=== PATIENT | male | born 1965 | race Caucasian/White ===

== ENCOUNTER 2018-12-25 06:46 | Day surgery (SDC) | payer BC ==
[~2018-12-25 06:46] MED LIST: Lactated Ringers 1,000 ML IV SCH
--- NOTE | 2018-12-25 07:18 | PCM.PREANE ---
Preanesthetic Assessment - Anesthesia/Transfusion/Family Hx Anesthesia History: Prior Anesthesia Without Reaction Other Type of Anesthesia Reaction Comment: NO problem when snoozed for [place] teeth Family History of Anesthesia Reaction: No Transfusion History: No Prior Transfusion(s) Intubation History: Unknown - Review of Systems General: No Symptoms Pulmonary: No Symptoms Cardiovascular: No Symptoms Gastrointestinal: No Symptoms Neurological: No Symptoms Other: Reports: None - Physical Assessment O2 Sat by Pulse Oximetry: 98 Respiratory Rate: 16 Vital Signs: Last Vital Signs Temp 97.3 F 12/25/18 07:04 Pulse 62 12/25/18 07:04 Resp 16 12/25/18 07:04 BP 135/69 12/25/18 07:04 Pulse Ox 98 12/25/18 07:04 Height: 6 ft Weight: 102.058 kg ASA Class: 2 Mental Status: Alert & Oriented x3 Airway Class: Mallampati = 2 Dentition: Reports: Normal Dentition, [place]s) (lower right and left (back)), [place] (left upper (back)) Thyro-Mental Finger Breadths: 3 Mouth Opening Finger Breadths: 3 ROM/Head Extension: Full Lungs: Clear to Auscultation, Normal Respiratory Effort Cardiovascular: Regular Rate, Regular Rhythm - Allergies Allergies/Adverse Reactions: Allergies Allergy/AdvReac Type Severity Reaction Status Date / Time No Known Allergies Allergy Verified 12/19/18 14:39 - Blood Blood Available: No - Anesthesia Plan Pre-Op Medication Ordered: None - Acknowledgements Anesthesia Type Planned: General Anesthesia Pt an Appropriate Candidate for the Planned Anesthesia: Yes Alternatives and Risks of Anesthesia Discussed w Pt/Guardian: Yes Pt/Guardian Understands and Agrees with Anesthesia Plan: Yes PreAnesthesia Questionnaire HEENT History: Reports: Other (See Below) Other HEENT History: wears glasses Cardiovascular History: Reports: Hypertension - Past Surgical History Other HEENT Surgeries/Procedures: [place] teeth extracted GI Surgical History: Reports: Colonoscopy - SUBSTANCE USE Smoking Status *Q: Never Smoker (quit chewing more than 10 years ago) Recreational Drug Use History: No - HOME MEDS Home Medications: Home Meds Ascorbic Acid [Vitamin C] 1,000 mg PO DAILY 07/09/15 [History] Aspirin [Adult Low Dose Aspirin EC] 81 mg PO DAILY 07/09/15 [History] Fish Oil/[place]-3 Fatty Acids [Fish Oil 1,000 MG] 3,000 mg PO DAILY 12/19/18 [ History] Lisinopril 30 mg PO DAILY 12/19/18 [History] - CURRENT (IN HOUSE) MEDS Current Meds: Current Medications Lactated Ringer's (Ringers, Lactated) 1,000 mls @ 125 mls/hr IV [facility]ED [facility] Last Admin: 12/25/18 07:03 Dose: 125 mls/hr
[2018-12-25] MEDS ORDERED: Midazolam 1 MG/ML 2 ML SDV ONE (07:23)
[2018-12-25] MEDS ORDERED: fentaNYL 100 MCG/2 ML SDV ONE (07:24)
[2018-12-25] MEDS ORDERED: Lidocaine 2% 5 ML SDV ONE (07:25)
[2018-12-25] MEDS ORDERED: Propofol 200 MG/20 ML SDV ONE (07:27)
[2018-12-25] MEDS ORDERED: Lidocaine 1% 20 ML MDV ONE (07:29)
[2018-12-25] MEDS ORDERED: Bupivacaine 0.5% 30 ML SDV ONE (07:29)
[2018-12-25] MEDS ORDERED: Rocuronium 10 MG/ML 10 ML Syringe ONE (07:59)
[2018-12-25] MEDS ORDERED: Neostigmine Methylsulfate 1 MG/ML 5 ML Syringe ONE (08:50)
[2018-12-25] MEDS ORDERED: Glycopyrrolate 0.2 MG/ML SDV ONE (08:50)
[2018-12-25] MEDS ORDERED: Ondansetron 4 MG/2 ML SDV ONE ×2 (08:53)
[2018-12-25] MEDS ORDERED: Ketorolac 30 MG/ML SDV ONE (08:56)
[2018-12-25] MEDS ORDERED: ePHEDrine 50 MG/ML SDV ONE (08:59)
[2018-12-25] MEDS ORDERED: Acetaminophen/HYDROcodone 325-5 MG Tab PO PRN (09:10)
[2018-12-25] MEDS ORDERED: Sugammadex Sodium 200 MG/2 ML VIAL ONE (09:11)
[2018-12-25] MEDS ORDERED: Lactated Ringers 1,000 ML IV SCH (09:15)
[2018-12-25] MEDS ORDERED: fentaNYL 100 MCG/2 ML SDV IVPUSH PRN (09:22)
--- NOTE | 2018-12-25 09:24 | PCM.OPNOTE ---
- General Post-Op/Procedure Note Date of Surgery/Procedure: 12/25/18 Operative Procedure(s): Excision 5 cm posterior neck mass Pre Op Diagnosis: Posterior neck mass Post-Op Diagnosis: Same Anesthesia Technique: General ET Tube (ASA II) Primary Surgeon: Dakota Barakat Prenatal Nurse: Whitney Danielle Fluid Replacement, Intraop: 1,000 EBL in mLs: 5 Condition: Good Free Text/Narrative:: DICTATION 636662 CPT CODE 48593
--- NOTE | 2018-12-25 10:31 | PCM48HPAN ---
Post Anesthesia Note - EVALUATION WITHIN 48HRS OF ANESTHETIC Vital Signs in Normal Range: Yes Patient Participated in Evaluation: Yes Respiratory Function Stable: Yes Airway Patent: Yes Cardiovascular Function Stable: Yes Hydration Status Stable: Yes Pain Control Satisfactory: Yes Nausea and Vomiting Control Satisfactory: Yes Mental Status Recovered: Yes Resp Rate: 13 - COMMENTS/OBSERVATIONS Free Text/Narrative:: no anesthesia problems
[2018-12-25 10:58] VITALS: BP 130/70
--- NOTE | 2018-12-25 15:01 | OR ---
SURGEON: Dakota Barakat M.D. DATE OF PROCEDURE: 12/25/2018 OPERATION PERFORMED: Excision of 5 cm posterior neck mass with layered 10 cm closure. PRIMARY SURGEON: Dakota Barakat M.D. 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 ANESTHESIA: General endotracheal ASA CLASSIFICATION: II. PREOPERATIVE DIAGNOSIS: Symptomatic enlarging posterior neck mass. POSTOPERATIVE DIAGNOSIS: Symptomatic enlarging posterior neck mass. ESTIMATED BLOOD LOSS: 5 mL. INTRAOPERATIVE FLUID REPLACEMENT: 1000 mL of crystalloid. DESCRIPTION OF PROCEDURE: The patient was taken to the operating room, kept on the transfer cart in the supine position. Time-out was called for appropriate identification of the patient and procedure. Thigh-high TEDs and sequential compression boots were placed. Following satisfactory attainment of general endotracheal anesthesia, the patient was placed on the operating table in the prone position. Care was taken to pad all bony prominences. The posterior neck and upper back were prepped with DuraPrep solution. Sterile drapes were applied. The skin incision had been marked out prior to the patient entering the operating room. The skin was now infiltrated with 0.5% Marcaine solution. The skin incision was made and deepened through the subcutaneous tissue down to the mass in question. Using electrocautery, the mass was dissected free, removing the mass in its entirety. The hemostasis was obtained with the use of electrocautery. The wound was then inspected for hemostasis and no other bleeding was noted. The incision was then closed in 2 layers approximating the subcutaneous tissue with 3-0 Vicryl, and the skin with subcuticular 4-0 Monocryl. Half-inch Steri-Strips were placed over the incision, which was dressed with a sterile Tegaderm pad. Sponge, needle, and instrument counts were all correct. The patient was placed back on the transfer cart in the supine position. Following satisfactory emergence from anesthesia, he was extubated and taken to recovery room in stable condition. HAYLEY / AYO /[id number]
== END 2018-12-25 11:01 | disposition home or self-care (01) ==
LOC: MW.SDS 06:46
PROVIDERS: ATTEND Surgery
DX: D17.0 Benign lipomatous neoplasm of skin and subcutaneous tissue of head, face and neck (principal); I10 Essential (primary) hypertension; Z87.891 Personal history of nicotine dependence; Z79.82 Long term (current) use of aspirin; Z79.899 Other long term (current) drug therapy
CPT/HCPCS: 21552; 88304; J1885; J2001; J2250; J2405; J2704; J3010; J3490; J7120; 00300